=== PATIENT | male | born 1950 | race Caucasian/White ===

== ENCOUNTER → 2016-07-01 | Outpatient (CLI) | payer OTHER, MEDICARE | LOC: BHFA 13:15 | PROVIDERS: ATTEND Internal Medicine Interventional Cardiology | DX: Z01.810 Encounter for preprocedural cardiovascular examination (principal); I25.10 Atherosclerotic heart disease of native coronary artery without angina pectoris; Z94.0 Kidney transplant status; E78.5 Hyperlipidemia, unspecified; G47.33 Obstructive sleep apnea (adult) (pediatric); I10 Essential (primary) hypertension ==

== ENCOUNTER 2016-10-16 07:18 | Day surgery (SDC) | payer OTHER, MEDICARE ==
[2016-10-16] MEDS ORDERED: IOPAMIDOL (ISOVUE-300) 100 ML BTL ONE (09:46)
[2016-10-16 10:11] VITALS: BP 116/75; PULSE 68; RESP 16; TEMP 97.9; O2SAT 97
[2016-10-16] MEDS ORDERED: ONDANSETRON 4 MG/2 ML VIAL IVP PRN (10:30)
[2016-10-16] MEDS ORDERED: OXYCODONE/APAP 5/325 TAB PO PRN (10:30)
[2016-10-16] MEDS ORDERED: ONDANSETRON DISINTEGRATING 4 MG TAB PO PRN (10:30)
== END 2016-10-16 14:22 | disposition home or self-care (01) ==
LOC: FIMAGING 07:18
PROVIDERS: ATTEND Neurological Surgery
PROC: 06H03DZ Insertion of Intraluminal Device into Inferior Vena Cava, Percutaneous Approach (ICD-10-PCS; principal; 2016-10-16 09:00)
DX: Z40.8 Encounter for other prophylactic surgery (principal); Z94.0 Kidney transplant status; I25.10 Atherosclerotic heart disease of native coronary artery without angina pectoris; I10 Essential (primary) hypertension; Z87.891 Personal history of nicotine dependence; Z95.5 Presence of coronary angioplasty implant and graft
CPT/HCPCS: 37191; 75825; 99152; C1769; Q9967

== ENCOUNTER → 2016-11-17 | Outpatient (CLI) | payer OTHER, MEDICARE | LOC: FIMAGING 11:36 | PROVIDERS: ATTEND Family Medicine | DX: K59.00 Constipation, unspecified (principal); Z98.1 Arthrodesis status ==

== ENCOUNTER 2017-01-19 07:34 | Day surgery (SDC) | payer OTHER, MEDICARE ==
[2017-01-19] MEDS ORDERED: IOPAMIDOL (ISOVUE-300) 100 ML BTL ONE (07:54)
[2017-01-19 08:27] LABS: HEMATOCRIT 36.6 % (40.0-51.0); HEMOGLOBIN 12.6 g/dL (13.7-17.5)
[2017-01-19] MEDS ORDERED: NALOXONE HCL 0.4 MG/ML INJ ONE (09:04)
[2017-01-19] MEDS ORDERED: fentaNYL 100 MCG/2 ML INJ ONE (09:04)
[2017-01-19 09:24] LABS: PROTIME(PATIENT) 13.1 SEC (12.0-15.0)
[2017-01-19 10:25] VITALS: TEMP 97.3
[2017-01-19 10:50] VITALS: BP 132/79; PULSE 77; RESP 16; O2SAT 95
== END 2017-01-19 10:51 | disposition home or self-care (01) ==
LOC: FIMAGING 07:34
PROVIDERS: ATTEND Neurological Surgery
PROC: 06PY3DZ Removal of Intraluminal Device from Lower Vein, Percutaneous Approach (ICD-10-PCS; principal; 2017-01-19 09:45)
DX: Z45.2 Encounter for adjustment and management of vascular access device (principal); Z98.1 Arthrodesis status; Z79.82 Long term (current) use of aspirin
CPT/HCPCS: 37193; 75825; 99152; C1769; C1773; C1892; J1644; J2310; J3010; Q9967

== ENCOUNTER → 2017-04-01 | Outpatient (CLI) | payer OTHER, MEDICARE ==
[~2017-04-01] MED LIST: GADOBUTROL 10 ML VIAL IVP ONE
== END ==
LOC: FIMAGING 12:20
PROVIDERS: ATTEND Specialist
DX: R97.20 Elevated prostate specific antigen [PSA] (principal); N42.89 Other specified disorders of prostate
CPT/HCPCS: 72197; 76377; A9585